=== PATIENT | male | born 1960 | race Caucasian/White ===

== ENCOUNTER 2016-12-11 07:20 | Emergency (ER) | payer MEDICAID ==
[~2016-12-11] VITALS: Ht 193 cm; Wt 97.1 kg
[~2016-12-11 07:20] MED LIST: DOXE50CA PO; EPIN5DRO10 EACHEYE; FEXO180T5 PO; FLUO10TA PO; FLUO40CA9 PO; FLUT16SP NAS; GABA300C10 PO; LISI-167 PO; MELO-190 PO; MULT1CAP19 PO; NAPH15DR4 EACHEYE; OMEP-110 PO; PANT20TA3 PO; TRAZ150T68 PO
[2016-12-11 08:25] LABS: ASPARTATE AMINO TRANSFERASE 34 U/L (15-37); BLOOD UREA NITROGEN 15 mg/dL (7-18)
[2016-12-11 08:58] VITALS: BP 133/87
== END 2016-12-11 09:00 | disposition home or self-care (01) ==
LOC: ED 07:52
DX: S80.212A Abrasion, left knee, initial encounter (principal); R60.0 Localized edema; I10 Essential (primary) hypertension; K21.9 Gastro-esophageal reflux disease without esophagitis; F90.9 Attention-deficit hyperactivity disorder, unspecified type; F17.210 Nicotine dependence, cigarettes, uncomplicated; X58.XXXA Exposure to other specified factors, initial encounter; Y93.89 Activity, other specified; Y92.89 Other specified places as the place of occurrence of the external cause; Y99.8 Other external cause status
CPT/HCPCS: 36415; 80053; 83880; 85025; 99284

== ENCOUNTER 2016-12-13 11:44 | Emergency (ER) | payer MEDICAID ==
[~2016-12-13] VITALS: Ht 193 cm; Wt 95.2 kg
[2016-12-13 14:04] LABS: BLOOD UREA NITROGEN 19 mg/dL (7-18)
[2016-12-13 14:12] LABS: ASPARTATE AMINO TRANSFERASE 27 U/L (15-37)
[2016-12-13 16:02] VITALS: BP 163/102
[2016-12-14] MEDS ORDERED: FUROSEMIDE 20 MG TABLET PO SCH (09:00)
== END 2016-12-13 16:04 | disposition home or self-care (01) ==
LOC: ED 15:59
DX: R60.0 Localized edema (principal); I10 Essential (primary) hypertension; K21.9 Gastro-esophageal reflux disease without esophagitis; G62.9 Polyneuropathy, unspecified; F90.9 Attention-deficit hyperactivity disorder, unspecified type; Z87.891 Personal history of nicotine dependence
CPT/HCPCS: 36415; 71010; 80053; 83880; 85025; 99285

== ENCOUNTER 2017-01-07 12:47 | Emergency (ER) | payer MEDICAID ==
[~2017-01-07] VITALS: Ht 193 cm; Wt 91.5 kg
[2017-01-07 12:49] VITALS: BP 127/81
[2017-01-07] MEDS ORDERED: KETOROLAC 30 MG/1 ML IM ONE (13:30)
[2017-01-07] MEDS ORDERED: KETOROLAC 30 MG/1 ML ONE (13:40)
== END 2017-01-07 14:14 | disposition home or self-care (01) ==
LOC: ED 13:44
DX: S93.401A Sprain of unspecified ligament of right ankle, initial encounter (principal); M79.671 Pain in right foot; I10 Essential (primary) hypertension; K21.9 Gastro-esophageal reflux disease without esophagitis; F17.200 Nicotine dependence, unspecified, uncomplicated; G62.9 Polyneuropathy, unspecified; X50.1XXA Overexertion from prolonged static or awkward postures, initial encounter; Y93.89 Activity, other specified; Y92.89 Other specified places as the place of occurrence of the external cause; Y99.8 Other external cause status
CPT/HCPCS: 99284

== ENCOUNTER 2017-01-28 11:02 | Emergency (ER) | payer MEDICAID ==
[~2017-01-28] VITALS: Ht 193 cm; Wt 92.7 kg
[~2017-01-28 11:02] MED LIST changes: +FEXO180T15 PO; -FEXO180T5 PO; -MELO-190 PO; +MELO7.5T31 PO; +TRAZ150T62 PO; -TRAZ150T68 PO
[2017-01-28] MEDS ORDERED: SODIUM CHLORIDE 0.9% 1,000ML IVBOLUS ONE ×2 (13:00→14:00)
[2017-01-28] MEDS ORDERED: SODIUM CHLORIDE FLUSH 10ML SYR IVF ONE (13:00)
[2017-01-28 13:09] LABS: HEMATOCRIT 37.8 % (39.2-51.8); HEMOGLOBIN 12.8 g/dL (13.7-18.0)
[2017-01-28 13:21] LABS: ASPARTATE AMINO TRANSFERASE 35 U/L (15-37); BLOOD UREA NITROGEN 18 mg/dL (7-18)
[2017-01-28 16:45] VITALS: BP 133/90
== END 2017-01-28 17:56 | disposition home or self-care (01) ==
LOC: ED 13:20
DX: F10.120 Alcohol abuse with intoxication, uncomplicated (principal); K21.9 Gastro-esophageal reflux disease without esophagitis; F90.9 Attention-deficit hyperactivity disorder, unspecified type; I10 Essential (primary) hypertension
CPT/HCPCS: 36415; 80053; 83690; 85025; 93005; 96360; 96361; 99285; J7030

== ENCOUNTER 2017-02-21 13:05 | Emergency (ER) | payer MEDICAID ==
[~2017-02-21] VITALS: Ht 193 cm; Wt 91.0 kg
[2017-02-21] MEDS ORDERED: IBUPROFEN 200 MG TABLET PO ONE (14:00)
[2017-02-21] MEDS ORDERED: IBUPROFEN 200 MG TABLET ONE (14:05)
[2017-02-21 16:12] VITALS: BP 115/82
== END 2017-02-21 16:23 | disposition home or self-care (01) ==
LOC: ED 15:32
DX: S40.012A Contusion of left shoulder, initial encounter (principal); S20.212A Contusion of left front wall of thorax, initial encounter; K21.9 Gastro-esophageal reflux disease without esophagitis; I10 Essential (primary) hypertension; F90.9 Attention-deficit hyperactivity disorder, unspecified type; Y04.8XXA Assault by other bodily force, initial encounter; Y93.89 Activity, other specified; Y92.488 Other paved roadways as the place of occurrence of the external cause; Y99.8 Other external cause status
CPT/HCPCS: 70450; 72125; 93005; 99284

== ENCOUNTER 2017-04-15 19:14 | Emergency (ER) | payer MEDICAID ==
[~2017-04-15] VITALS: Ht 193 cm; Wt 92.0 kg
[2017-04-16 02:06] VITALS: BP 129/74
== END 2017-04-16 02:08 | disposition home or self-care (01) ==
LOC: ED 19:40
DX: F10.229 Alcohol dependence with intoxication, unspecified (principal); I10 Essential (primary) hypertension; K21.9 Gastro-esophageal reflux disease without esophagitis; G62.9 Polyneuropathy, unspecified; F90.9 Attention-deficit hyperactivity disorder, unspecified type
CPT/HCPCS: 99283

== ENCOUNTER 2017-04-17 17:37 | Emergency (ER) | payer MEDICAID ==
[~2017-04-17] VITALS: Ht 188 cm; Wt 86.0 kg
[2017-04-17] MEDS ORDERED: PLEASE ENTER HEIGHT AND WEIGHT MC SCH (17:52)
[2017-04-17] MEDS ORDERED: THIAMINE 100 MG/ML, 2ML IM ONE (18:00)
[2017-04-17] MEDS ORDERED: SODIUM CHLORIDE 0.9% 1,000ML IVBOLUS ONE (18:00)
[2017-04-17] MEDS ORDERED: SODIUM CHLORIDE FLUSH 10ML SYR IVF ONE (18:00)
[2017-04-17 18:10] LABS: HEMATOCRIT 45.1 % (39.2-51.8); HEMOGLOBIN 15.4 g/dL (13.7-18.0); WHITE BLOOD COUNT 6.9 x10^3/uL (3.4-10)
[2017-04-17 18:21] LABS: BLOOD UREA NITROGEN 11 mg/dL (7-18)
[2017-04-18 02:48] VITALS: BP 133/92
== END 2017-04-18 04:22 | disposition home or self-care (01) ==
LOC: ED 17:48
DX: T68.XXXA Hypothermia, initial encounter (principal); G31.2 Degeneration of nervous system due to alcohol; F10.129 Alcohol abuse with intoxication, unspecified; K21.9 Gastro-esophageal reflux disease without esophagitis; I10 Essential (primary) hypertension; G62.9 Polyneuropathy, unspecified; F32.9 Major depressive disorder, single episode, unspecified; X31.XXXA Exposure to excessive natural cold, initial encounter
CPT/HCPCS: 36415; 80048; 80307; 82040; 85025; 93005; 96360; 96372; 99285; J3411; J7030; G0479

== ENCOUNTER 2017-04-19 08:31 | Emergency (ER) | payer MEDICAID ==
[~2017-04-19] VITALS: Ht 190.5 cm; Wt 90.0 kg
[2017-04-19] MEDS ORDERED: ONDANSETRON ODT 4 MG ONE (11:16)
[2017-04-19] MEDS ORDERED: ONDANSETRON ODT 4 MG PO ONE (11:30)
[2017-04-19 22:24] VITALS: BP 151/78
== END 2017-04-19 22:27 | disposition home or self-care (01) ==
LOC: ED 08:37
DX: F10.220 Alcohol dependence with intoxication, uncomplicated (principal); F32.9 Major depressive disorder, single episode, unspecified; I10 Essential (primary) hypertension; K21.9 Gastro-esophageal reflux disease without esophagitis; G62.9 Polyneuropathy, unspecified; Y90.9 Presence of alcohol in blood, level not specified
CPT/HCPCS: 99283; Q0162